=== PATIENT | female | born 1955 | race Caucasian/White ===

== ENCOUNTER 2018-06-14 07:44 | Inpatient (IN) | payer OTHER, MEDICAID ==
[2018-06-14] MEDS: LACTATED RINGER'S 1,000 ML IV* (08:00)
[2018-06-14] MEDS: CEFAZOLIN 1 GM/50 ML (PMX) 50 ML IVPB (08:00)
[2018-06-14] MEDS: ONDANSETRON 4 MG INJ IV ×3 (09:12→19:30)
[2018-06-14] MEDS: DEXAMETHASONE 4 MG/ML 1 ML INJ IV (09:12)
[2018-06-14] MEDS: ACETAMINOPHEN 500 MG TAB PO (09:13)
[2018-06-14] MEDS: LANSOPRAZOLE 30 MG CAP PO (09:13)
[2018-06-14] MEDS: oxyCODONE (CR) 10 MG TAB [oxyCONTIN] PO (09:20)
[2018-06-14] MEDS ORDERED: PROPOFOL 20 ML (09:47)
[2018-06-14] MEDS ORDERED: FENTAnyl 50 MCG/ML VIAL (09:47)
[2018-06-14] MEDS ORDERED: ONDANSETRON 4 MG INJ (09:47)
[2018-06-14] MEDS ORDERED: CEFAZOLIN 1 GM INJ (09:47)
[2018-06-14] MEDS ORDERED: DEXAMETHASONE 4 MG/ML 5 ML INJ (09:47)
[2018-06-14] MEDS ORDERED: MIDAZOLAM 1 MG/ML 2 ML INJ (09:47)
[2018-06-14] MEDS ORDERED: GLYCOPYRROLATE 0.4 MG INJ (09:47)
[2018-06-14] MEDS ORDERED: ROCURONIUM 50 MG INJ (09:47)
[2018-06-14] MEDS ORDERED: morphine SULFATE/PF (10 MG/10 ML) INJ (09:48)
[2018-06-14] MEDS: TRANEXAMIC ACID 1GM/100ML(PMX) 100 ML PRE-OP X1 IVPB ×2 (11:15)
[2018-06-14] MEDS: BACITRACIN 50000 UNITS INJ (11:37)
[2018-06-14] MEDS: POLYMYXIN B 500000 UNIT INJ (11:37)
[2018-06-14] MEDS: HIP PAIN COCKTAIL VANCO INJ (11:37)
[2018-06-14] MEDS ORDERED: TRANEXAMIC ACID 1GM/100ML(PMX) 100 ML (11:39)
[2018-06-14] MEDS ORDERED: HYDROmorphONE 1 MG/5 ML IV SYRINGE IV ×3 (12:00)
[2018-06-14] MEDS ORDERED: ZOLPIDEM 5 MG TAB PO (12:00)
[2018-06-14] MEDS ORDERED: EPHEDrine SULFATE 50 MG/5 ML SYG IV (12:00)
[2018-06-14] MEDS ORDERED: morphine 2 MG INJ IV ×2 (12:00)
[2018-06-14] MEDS ORDERED: TRIMETHOBENZAMIDE 100 MG/ML VIAL IM ×2 (12:00)
[2018-06-14] MEDS ORDERED: MIDAZOLAM 1 MG/ML 2 ML INJ IV (12:00)
[2018-06-14] MEDS ORDERED: DIPHENHYDRAMINE 50 MG INJ IV (12:00)
[2018-06-14] MEDS ORDERED: LABETALOL HCL 20MG INJ IV (12:00)
[2018-06-14] MEDS ORDERED: ONDANSETRON 4 MG INJ IV ×2 (12:00)
[2018-06-14] MEDS ORDERED: MEPERIDINE 25 MG INJ IV (12:00)
[2018-06-14] MEDS ORDERED: hydrALAzine 20 MG INJ IV (12:00)
[2018-06-14] MEDS ORDERED: FENTAnyl 50 MCG/ML VIAL IV ×3 (12:00)
[2018-06-14] MEDS ORDERED: NALOXONE (0.4 MG/ML) INJ IV ×2 (12:00→13:30)
[2018-06-14] MEDS ORDERED: NALBUPHINE HCL (10 MG/1 ML) INJ IV (12:00)
[2018-06-14] MEDS ORDERED: ALBUTEROL 0.083% (NEB) 2.5 MG/3 ML AMP HHN (12:00)
[2018-06-14] MEDS ORDERED: IPRATROPIUM (NEB) 0.5 MG/2.5 ML AMP HHN (12:00)
[2018-06-14] MEDS ORDERED: SUGAMMADEX SODIUM 200 MG/2 ML VIAL IV (12:58)
[2018-06-14] MEDS: TRANEXAMIC ACID 1GM/100ML(PMX) 100 ML INTRA-OP X1 IVPB ×2 (13:09)
[2018-06-14] MEDS ORDERED: NACL 0.9% 3 ML SYG IV (13:30)
[2018-06-14] MEDS ORDERED: oxyCODONE 5 MG TAB PO (13:30)
[2018-06-14] MEDS ORDERED: ASPIRIN 81 MG TAB (13:39)
[2018-06-14] MEDS ORDERED: DOCUSATE SODIUM 100 MG CAP PO (13:39)
[2018-06-14] MEDS ORDERED: CEFAZOLIN 2 GM/50 ML (PMX) 50 ML IVPB (13:48)
[2018-06-14] MEDS: CEFAZOLIN 2 GM/50 ML (PMX) 50 ML IVPB ×2 (13:53→21:38)
[2018-06-14] MEDS: DOCUSATE SODIUM 100 MG CAP PO (13:54)
[2018-06-14] MEDS: DIPHENHYDRAMINE 50 MG INJ IV (14:02)
[2018-06-14] MEDS ORDERED: DEXTROSE 50% 50 ML SYRINGE IV ×2 (17:00)
[2018-06-14] MEDS ORDERED: GLUCAGON 1 MG INJ IM (17:00)
[2018-06-14] MEDS ORDERED: GLUCOSE GEL 15 GRAM TUBE BUCCAL (17:00)
[2018-06-14] MEDS ORDERED: GLUCOSE GEL 15 GRAM TUBE PO ×2 (17:00)
[2018-06-14] MEDS: metFORMIN 500 MG TAB PO (17:45)
[2018-06-14] MEDS: GABAPENTIN 300 MG CAP PO (21:42)
[2018-06-14] MEDS: GABAPENTIN 100 MG CAP PO (21:42)
[2018-06-15] MEDS: ONDANSETRON 4 MG INJ IV ×2 (01:30→07:30)
[2018-06-15] MEDS: KETOROLAC 15 MG INJ IV ×2 (02:50→11:30)
[2018-06-15 05:30] LABS: ADD MAN DIFF? NO
[2018-06-15] MEDS: PANTOPRAZOLE (EC) 40 MG TAB PO (05:32)
[2018-06-15] MEDS: CEFAZOLIN 2 GM/50 ML (PMX) 50 ML IVPB (05:32)
[2018-06-15 05:38] LABS: ABNORMAL IP MESSAGE 1; BASOPHILS % 0.1 % (0.0-2.0); HEMATOCRIT 30.7 % (37.0-47.0); HEMOGLOBIN 9.5 g/dl (12.0-16.0); LYMPHOCYTES % 9.3 % (15.0-51.0); MEAN CORPUSCULAR HEMOGLOBIN 23.8 pg (29.0-33.0); MEAN CORPUSCULAR HGB CONC 30.9 g/dl (32.0-37.0); MEAN CORPUSCULAR VOLUME 76.8 fl (82.0-101.0); MONOCYTE # 0.7 10^3/ul (0.3-0.9); MONOCYTES % 6.5 % (0.0-11.0); NEUTROPHIL # 9.2 10^3/ul (1.6-7.5); NEUTROPHILS % 83.5 % (39.0-77.0); PLATELET COUNT 152 10^3/UL (140-415); RED CELL DISTRIBUTION WIDTH 19.5 % (11.5-14.5)
[2018-06-15 05:45] LABS: POSITIVE DIFF @See below
[2018-06-15 06:00] LABS: INR 1.02; PROTIME 13.5 Sec (11.9-14.9); PT RATIO 1.1
[2018-06-15 06:02] LABS: ANION GAP 8 (5-13); BLOOD UREA NITROGEN 17 mg/dl (7-20); CALCIUM 9.2 mg/dl (8.4-10.2); CARBON DIOXIDE 28 mmol/L (21-31); CHLORIDE 104 mmol/L (97-110); CREATININE 0.59 mg/dl (0.44-1.00); Estimated GFR > 60 mL/min (>60); GLUCOSE 135 mg/dl (70-220); POTASSIUM 4.1 mmol/L (3.5-5.1); SODIUM 140 mmol/L (135-144)
[2018-06-15] MEDS ORDERED: ASPIRIN (EC) 81 MG TAB PO (09:00)
[2018-06-15] MEDS ORDERED: CELECOXIB 100 MG CAP PO (09:00)
[2018-06-15] MEDS: BENAZEPRIL 40 MG TAB PO (09:00)
[2018-06-15] MEDS: DOCUSATE SODIUM 100 MG CAP PO (09:22)
[2018-06-15] MEDS: metFORMIN 500 MG TAB PO ×2 (09:22→17:55)
[2018-06-15] MEDS: ENOXAPARIN 30 MG/0.3 ML SYG SC (09:25)
[2018-06-15] MEDS: HYDROCODONE/APAP (5/325) TAB PO (15:06)
== END 2018-06-15 18:20 | disposition home health service (06) | DRG 470 ==
LOC: REC 07:44 → MS1 15:23
PROVIDERS: Orthopaedic Surgery Adult Reconstructive Orthopaedic Surgery
PROC: 0SR904A Replacement of Right Hip Joint with Ceramic on Polyethylene Synthetic Substitute, Uncemented, Open Approach (ICD-10-PCS; principal; 2018-06-14 10:30)
DX: M16.11 Unilateral primary osteoarthritis, right hip (principal); Z68.41 Body mass index [BMI] 40.0-44.9, adult; E66.01 Morbid (severe) obesity due to excess calories; K21.9 Gastro-esophageal reflux disease without esophagitis; I10 Essential (primary) hypertension; E11.9 Type 2 diabetes mellitus without complications; D64.9 Anemia, unspecified
CPT/HCPCS: 72170; 73500; 73530; 80048; 82962; 85025; 85610; 88304; 88311; 97116; 97161; 97167; 97530